=== PATIENT | female | born 1990 | race Caucasian/White ===

== ENCOUNTER 2020-08-19 20:49 | Inpatient (IN) ==
[~2020-08-19 20:49] MED LIST: *HR* Nalbuphine 10 MG/ML AMPUL IV PRN; Famotidine 20 MG/2 ML VIAL IVP PRN; Lidocaine 1% 20 ML MDV INFILT PRN; Metoclopramide 10 MG/2 ML VIAL IVP PRN; Naloxone 0.4 MG/ML INJ IVP PRN; Ondansetron 4 MG/2 ML VIAL IVP PRN; Ringers Solution, Lactated 1,000 ML IVC SCH
[2020-08-19 21:40] LABS: Basophils % 0.2 %; Eosinophils # 0.1 K/mcL (0.0-0.6); Eosinophils % 0.9 %; Hematocrit 34.3 % (35.3-44.9); Hemoglobin 11.5 g/dL (11.5-15.4); Immature Granulocytes % 1.3 % (0-4); Lymphocytes # 2.5 K/mcL (0.6-4.6); Lymphocytes % 20.1 %; Mean Corpuscular HGB Conc 33.5 g/dL (31.6-35.5); Mean Corpuscular Hemoglobin 31.6 pg (28.0-33.3); Mean Corpuscular Volume 94.2 fL (83.0-100.0); Mean Platelet Volume 10.1 fL (9.4-12.4); Monocytes # 0.9 K/mcL (0.0-1.3); Neutrophils # 8.6 K/mcL (1.6-8.9); Platelet Count 172 K/mcL (140-400); Red Blood Count 3.64 M/mcL (3.82-4.97); Red Cell Distribution Width 13.2 % (11.5-14.5); Segmented Neutrophils % 70.5 %; White Blood Count 12.2 K/mcL (4.3-11.1)
[2020-08-19 21:44] LABS: Amphetamine Screen,Urine Negative ng/mL (Cutoff=1000); Barbiturate Screen,Urine Negative ng/mL (Cutoff=200); Benzodiazepines Screen,Urine Negative ng/mL (Cutoff=200); Cannabinoid Screen,Urine Negative ng/mL (Cutoff = 50); Cocaine Screen,Urine Negative ng/mL (Cutoff= 300); Opiate Screen,Urine Negative ng/mL (Cutoff=300); Phencyclidine Screen,Urine Negative ng/mL (Cutoff=25)
[2020-08-20] MEDS ORDERED: Ropivacaine/PF 0.2% 20 ML VIAL EP ONE (00:10)
[2020-08-20] MEDS ORDERED: EPHEDrine 50 MG/ML VIAL IVP PRN (00:10)
[2020-08-20] MEDS ORDERED: Epidural Premix (fent/bupiv) 110 ML EP SCH (00:15)
[2020-08-20] MEDS ORDERED: Oxytocin 20 units/ LR 1000 mL 20 UNIT/1,000 ML BAG IVC SCH ×2 (00:30→14:13)
[2020-08-20] MEDS ORDERED: Ropivacaine/PF 0.2% 20 ML VIAL ONE ×2 (07:20→11:46)
[2020-08-20] MEDS ORDERED: Acetaminophen 325 MG TABLET PO PRN (14:13)
[2020-08-20] MEDS ORDERED: Lanolin 7 G OINT...G. TP PRN (14:13)
[2020-08-20] MEDS ORDERED: Benzocaine/Menthol 56 GM AEROSOL SPRAY TP PRN (14:13)
[2020-08-20] MEDS ORDERED: Rho Immune Globulin 1,500 UNIT SYRINGE IM PRN (14:13)
[2020-08-20] MEDS: Ibuprofen 600 MG TABLET PO PRN (17:05)
[2020-08-21] MEDS: Ibuprofen 600 MG TABLET PO PRN ×2 (08:41→21:39)
[2020-08-21] MEDS: Prenatal Vit/FA 1 EACH TABLET PO SCH (08:41)
[2020-08-22 07:49] VITALS: BP 105/69
[2020-08-22] MEDS: Ibuprofen 600 MG TABLET PO PRN (09:02)
[2020-08-22] MEDS: Prenatal Vit/FA 1 EACH TABLET PO SCH (09:02)
== END 2020-08-22 13:11 | disposition home or self-care (01) | DRG 807 ==
LOC: 1NENULAB → 2NENU 08-20 16:03 → 1NENUOBS 08-20 16:10
PROVIDERS: ADMIT Advanced Practice Midwife; ATTEND Advanced Practice Midwife